=== PATIENT | male | born 1970 | race Caucasian/White ===

== ENCOUNTER → 2022-10-01 11:58 | Outpatient (CLI) | payer OTHER, SELFPAY ==
[2022-10-01 12:21] LABS: Add Manual Diff / Slide Review NO; Basophils Absolute Auto 0 /uL (0-100); Basophils Percent Auto 0.4 % (0-2); Eosinophils Absolute Auto 300 /uL (0-450); Eosinophils Percent Auto 2.4 % (2-4); Hematocrit 50.3 % (41-53); Hemoglobin 16.9 g/dL (13.5-17.5); Lymphocytes Absolute Auto 2900 /uL (1100-4500); Lymphocytes Percent Auto 24.1 % (25-40); Mean Corpuscular HGB Conc 33.6 % (30-36); Mean Corpuscular Hemoglobin 29.9 PG (26-34); Mean Corpuscular Volume 88.9 fL (80-100); Monocytes Absolute Auto 900 /uL (0-900); Monocytes Percent Auto 7.2 % (3-14); Neutrophils Absolute Auto 7900 /uL (1500-7000); Neutrophils Percent Auto 65.9 % (50-75); Platelet Count 233 X10^3/uL (150-400); Red Blood Cell Count 5.66 X10^6/uL (4.5-5.9); Red Cell Distribution Width 14.4 % (11.6-14.8); White Blood Cell Count 12.1 X10^3/uL (4.5-11.0)
[2022-10-01 12:40] LABS: Alanine Aminotransferase 38 IU/L (<50); Albumin 4.1 g/dL (3.5-5.0); Albumin Globulin Ratio 1.2 (1.0-2.8); Alkaline Phosphatase 61 U/L (38-126); Aspartate Aminotransferase 30 IU/L (17-59); BUN Creatinine Ratio 15.8 (6-22); Bilirubin Total 1.1 mg/dL (0.2-1.3); Blood Urea Nitrogen 12 mg/dL (9-20); Calcium 8.8 mg/dL (8.4-10.2); Carbon Dioxide 24 mmol/L (22-32); Chloride 106 mmol/L (98-107); Cholesterol 204 mg/dL (140-199); Estimated Glomerular Filt Rate > 60 mL/min (>60); Globulin 3.3 g/dL (1.7-4.1); Glucose 101 mg/dL (70-100); HDL Cholesterol 43 mg/dL (40-60); HEMOLYSIS < 15 (0-50); LDL Cholesterol Calculated 149 mg/dL (<100); Potassium 4.3 mmol/L (3.4-5.1); Sodium 137 mmol/L (137-145); Total Protein 7.4 g/dL (6.3-8.2); Triglycerides 62 mg/dL (35-150)
[2022-10-01 13:07] LABS: Prostate Specific Antigen 0.627 ng/mL (0.10-4.00)
== END ==
PROVIDERS: PCP Family Medicine; Referring Provider Family Medicine; Visit Provider Family Medicine
DX: Z00.00 Encounter for general adult medical examination without abnormal findings (principal); Z80.42 Family history of malignant neoplasm of prostate
CPT/HCPCS: 36415; 80053; 80061; 84153; 85025

== ENCOUNTER 2022-12-08 10:07 | Day surgery (SDC) | payer OTHER, SELFPAY ==
[2022-12-08] VITALS (7 sets, daily range): BP systolic 86–142; BP diastolic 56–96; PULSE 79–96; RESP 10–17; TEMP 36.1–36.6; O2SAT 92–97; BMI 32.5
--- NOTE | 2022-12-08 | PATH_ITS ---
[facility] Accession Number: [id number] No. of containers..01 Tissue . 01 Material submitted: . colon - DESCENDING COLON POLYP . 01 Diagnosis: Descending Colon Polyp x1, Biopsy: Tubular adenoma. MRV 12/11/2022 1434 Local . 01 Electronically signed: . Antonella Mercado MD, Pathologist NPI- [id number] . 01 Gross description: . DESCENDING COLON POLYP: Received in formalin is 1 fragment(s) of shook, soft tissue measuring 0.6 x 0.4 x 0.2 cm submitted entirely in 1 cassette(s) /CELIO 12/10/2022 0028 Local . 01 Pathologist provided ICD-10: D12.4 . 01 CPT . 778783 Specimen Comment: A courtesy copy of this report has been sent to [phone] Performed at: 01 [facility] [address] [place] [address], [place], [place] [id number] MD Chaz Lopes MD Phone: [phone]
[2022-12-08] MEDS: LACTATED RINGERS 1,000 ML 100 ML IV (10:51)
--- NOTE | 2022-12-08 11:12 | PM.HP.1 ---
History of Present Illness History of Present Illness Date Patient Seen: 12/08/22 Time Patient Seen: 11:12 Chief complaint: Colonoscopy Narrative: This is his 1st colonoscopy for colon cancer screening. Father had colon cancer in his 70s. No current symptoms PFSH Medical History BPH (benign prostatic hyperplasia) Hyperlipidemia Hypertension Well adult on routine health check Family History Father Cancer Uncle Cancer Social History household members: spouse Smoking Status: Never smoker alcohol intake: current Meds Home Medications and Allergies Home Medications Medication Instructions Recorded Confirmed Type lisinopril 10 mg tablet 10 mg PO DAILY #90 tabs 10/01/22 12/08/22 Rx tamsulosin 0.4 mg capsule 0.4 mg PO BEDTIME #90 caps 10/01/22 12/08/22 Rx Allergies Allergy/AdvReac Type Severity Reaction Status Date / Time No Known Drug Allergies Allergy Verified 12/08/22 10:38 Review of Systems Review of Systems ROS: Yes All systems reviewed with the patient and are negative except as otherwise documented Exam Vital Signs (past 8 hours): - 12/08/22 10:47 Temperature 97.3 F L Pulse Rate 91 H Respiratory Rate 17 Blood Pressure 142/96 H Pulse Oximetry 96 Oxygen Delivery Method Room Air Oxygen Delivery Method Room Air Const General: cooperative and healthy appearing Nutritional Appearance: average body habitus HENMT Head: normocephalic and atraumatic Ears: hearing grossly normal bilaterally Eyes Sclera: sclerae normal Neck Neck: trachea midline Resp Effort & Inspection: normal respiratory effort and able to speak in complete sentences Cardio Rate: regular rate Rhythm: regular rhythm GI Palpation: soft Skin General: elasticity normal and turgor normal Neuro General: patient alert, patient awake and patient oriented x3 Cognition: normal cognition Speech: speech normal Psych Mental Status: mental status grossly normal Judgment: judgment good Assessment & Plan Assessment & Plan narrative: Colonoscopy under MAC for colon cancer screening.
--- NOTE | 2022-12-08 11:25 | PM.OP.COLON ---
Operative Date/Time/Diagnoses Date of procedure: 12/08/22 Time of procedure: 11:25 Pre-op diagnosis: colon cancer screening Post-op diagnosis: same Procedure & Clinicians Study performed: colonoscopy with MAC with a cold forceps polypectomy Same procedure as scheduled: Yes Indications: Colon cancer screening Surgeon: Leandra Jo Procedure Notes Procedure in detail: Preop diagnosis: Colon cancer screening Postop diagnosis: Same Operative procedure: Colonoscopy under MAC with a cold forceps polypectomy Surgeon: Aparna Jo MD Findings: 3 mm polyp in the descending colon taken with cold forceps Procedure: Patient placed in a lateral position. Rectal exam performed showing normal tone no masses. Colonoscope inserted into the rectum and advanced to ileocecal valve with minimal difficulty. Insufflation and extraction of the scope including a retroflex had the above findings. Impression: 1 single 3 mm polyp in the descending colon. Gross appearance is adenomatous. No significant diverticulosis Plan: Repeat colonoscopy in 5 years unless otherwise indicated by change in clinical condition Findings: polyp(s) (3 mm polyp descending colon) Specimen(s): other (Descending colon polyp) Complications: none Post-procedure Recommendations: Colonoscopy in 5 years Follow up: as needed Disposition: PACU
--- NOTE | 2022-12-08 12:20 | SUR.PHASEII ---
DC home with . Denies pain, n/v, tolerating PO. All belongings with patient
== END 2022-12-08 12:21 | disposition home or self-care (01) ==
PROVIDERS: Surgery; PCP Family Medicine; Referring Provider Surgery; Visit Provider Surgery
PROC: 0DJD8ZZ Inspection of Lower Intestinal Tract, Via Natural or Artificial Opening Endoscopic (ICD-10-PCS; CPT 45378; principal; 2022-12-08 11:30)
DX: D12.4 Benign neoplasm of descending colon (principal); Z12.11 Encounter for screening for malignant neoplasm of colon; I10 Essential (primary) hypertension; E78.5 Hyperlipidemia, unspecified
CPT/HCPCS: 45380

== ENCOUNTER → 2023-06-24 09:33 | Outpatient (CLI) | payer OTHER, SELFPAY ==
[2023-06-24 11:04] LABS: Cholesterol 216 mg/dL (140-199); HDL Cholesterol 50 mg/dL (40-60); LDL Cholesterol Calculated 153 mg/dL (<100); Triglycerides 67 mg/dL (35-150)
== END ==
LOC: LAB 09:34
PROVIDERS: PCP Family Medicine; Referring Provider Family Medicine; Visit Provider Family Medicine
DX: E78.5 Hyperlipidemia, unspecified (principal); I10 Essential (primary) hypertension
CPT/HCPCS: 36415; 80061

== ENCOUNTER → 2024-01-07 09:13 | Outpatient (CLI) | payer OTHER, SELFPAY ==
[2024-01-07 10:18] LABS: Add Manual Diff / Slide Review NO; Basophils Absolute Auto 100 /uL (0-100); Basophils Percent Auto 0.7 % (0-2); Eosinophils Absolute Auto 400 /uL (0-450); Eosinophils Percent Auto 3.3 % (2-4); Hematocrit 47.7 % (41-53); Hemoglobin 15.7 g/dL (13.5-17.5); Lymphocytes Absolute Auto 2800 /uL (1100-4500); Lymphocytes Percent Auto 25.4 % (25-40); Mean Corpuscular Hemoglobin 29.9 PG (26-34); Mean Corpuscular Volume 90.7 fL (80-100); Monocytes Absolute Auto 900 /uL (0-900); Monocytes Percent Auto 8.3 % (3-14); Neutrophils Absolute Auto 6900 /uL (1500-7000); Neutrophils Percent Auto 62.3 % (50-75); Platelet Count 265 X10^3/uL (150-400); Red Blood Cell Count 5.26 X10^6/uL (4.5-5.9); Red Cell Distribution Width 14.4 % (11.6-14.8)
[2024-01-07 10:36] LABS: Alanine Aminotransferase 52 IU/L (<50); Albumin 4.3 g/dL (3.5-5.0); Albumin Globulin Ratio 1.5 (1.0-2.8); Alkaline Phosphatase 61 U/L (38-126); Aspartate Aminotransferase 39 IU/L (17-59); BUN Creatinine Ratio 13.9 (6-22); Bilirubin Total 1.1 mg/dL (0.2-1.3); Blood Urea Nitrogen 14 mg/dL (9-20); Calcium 9.3 mg/dL (8.4-10.2); Carbon Dioxide 27 mmol/L (22-32); Chloride 107 mmol/L (98-107); Cholesterol 183 mg/dL (140-199); Estimated Glomerular Filt Rate > 60 mL/min (>60); Globulin 2.9 g/dL (1.7-4.1); Glucose 114 mg/dL (70-100); HDL Cholesterol 46 mg/dL (40-60); HEMOLYSIS < 15 (0-50); LDL Cholesterol Calculated 127 mg/dL (<100); Potassium 4.9 mmol/L (3.4-5.1); Sodium 140 mmol/L (137-145); Total Protein 7.2 g/dL (6.3-8.2); Triglycerides 50 mg/dL (35-150)
[2024-01-07 11:02] LABS: Prostate Specific Antigen 0.772 ng/mL (0.10-4.00)
[2024-01-07 11:03] LABS: TSH w/ Reflex to FT4 1.11 uIU/mL (0.47-4.68)
== END ==
PROVIDERS: PCP Family Medicine; Referring Provider Family Medicine; Visit Provider Family Medicine
DX: Z00.00 Encounter for general adult medical examination without abnormal findings (principal); E78.5 Hyperlipidemia, unspecified; N40.0 Benign prostatic hyperplasia without lower urinary tract symptoms; I10 Essential (primary) hypertension
CPT/HCPCS: 36415; 80053; 80061; 84153; 84443; 85025

== ENCOUNTER → 2024-09-18 08:55 | Outpatient (CLI) | payer OTHER, SELFPAY ==
[2024-09-18 10:50] LABS: Add Manual Diff / Slide Review NO; Basophils Absolute Auto 0 /uL (0-100); Basophils Percent Auto 0.4 % (0-2); Eosinophils Absolute Auto 200 /uL (0-450); Eosinophils Percent Auto 1.9 % (2-4); Hematocrit 48.2 % (41-53); Hemoglobin 16.3 g/dL (13.5-17.5); Lymphocytes Absolute Auto 2400 /uL (1100-4500); Lymphocytes Percent Auto 23.1 % (25-40); Mean Corpuscular HGB Conc 33.9 % (30-36); Mean Corpuscular Hemoglobin 30.6 PG (26-34); Mean Corpuscular Volume 90.5 fL (80-100); Monocytes Absolute Auto 800 /uL (0-900); Monocytes Percent Auto 7.9 % (3-14); Neutrophils Absolute Auto 6900 /uL (1500-7000); Neutrophils Percent Auto 66.7 % (50-75); Platelet Count 257 X10^3/uL (150-400); Red Blood Cell Count 5.33 X10^6/uL (4.5-5.9); Red Cell Distribution Width 13.7 % (11.6-14.8); White Blood Cell Count 10.3 X10^3/uL (4.5-11.0)
[2024-09-18 10:53] LABS: Hemoglobin A1C% w Est Avg Glu 5.5 % (4.0-6.0)
[2024-09-18 11:06] LABS: Alanine Aminotransferase 56 IU/L (<50); Albumin 4.5 g/dL (3.5-5.0); Albumin Globulin Ratio 1.6 (1.0-2.8); Alkaline Phosphatase 62 U/L (38-126); Aspartate Aminotransferase 38 IU/L (17-59); BUN Creatinine Ratio 14.6 (6-22); Bilirubin Total 1.3 mg/dL (0.2-1.3); Blood Urea Nitrogen 12 mg/dL (9-20); Calcium 9.6 mg/dL (8.4-10.2); Carbon Dioxide 22 mmol/L (22-32); Chloride 106 mmol/L (98-107); Cholesterol 184 mg/dL (140-199); Estimated Glomerular Filt Rate > 60 mL/min (>60); Globulin 2.8 g/dL (1.7-4.1); Glucose 97 mg/dL (70-100); HDL Cholesterol 42 mg/dL (40-60); HEMOLYSIS < 15 (0-50); LDL Cholesterol Calculated 133 mg/dL (<100); Potassium 4.5 mmol/L (3.4-5.1); Sodium 138 mmol/L (137-145); Total Protein 7.3 g/dL (6.3-8.2); Triglycerides 45 mg/dL (35-150)
[2024-09-18 11:20] LABS: Creatinine Urine Random 181.85 mg/dL
[2024-09-18 11:24] LABS: Microalbumin Urine Random 0.7 mg/dL (0-1.6)
[2024-09-19 06:38] LABS: Rubeola Measles IgG > 300.0 AU/mL (Immune >16.4)
[2024-09-19 13:36] LABS: Mumps Virus IgG Antibody 67.7 AU/mL (Immune >10.9)
== END ==
PROVIDERS: PCP Family Medicine; Referring Provider Family Medicine; Visit Provider Family Medicine
DX: Z01.84 Encounter for antibody response examination (principal); E78.5 Hyperlipidemia, unspecified; I10 Essential (primary) hypertension; N40.0 Benign prostatic hyperplasia without lower urinary tract symptoms; Z12.5 Encounter for screening for malignant neoplasm of prostate
CPT/HCPCS: 36415; 80053; 80061; 82043; 82570; 83036; 85025; 86735; 86762; 86765; G0103